=== PATIENT | male | born 1965 | race Caucasian/White ===

== ENCOUNTER 2023-02-11 17:16 | Emergency (ER) | payer MEDICAID, SELFPAY ==
[2023-02-11 17:18] VITALS: BP 141/83; PULSE 95; RESP 16; TEMP 36.3; O2SAT 100; BMI 23.4
--- NOTE | 2023-02-11 17:23 | NURSING ---
NO OLD EKGS
--- NOTE | 2023-02-11 18:15 | EKG12_ITS ---
Test Reason : CP Blood Pressure : / mmHG Vent. Rate : 085 BPM Atrial Rate : 085 BPM P-R Int : 126 ms QRS Dur : 088 ms QT Int : 366 ms P-R-T Axes : 071 052 058 degrees QTc Int : 435 ms Normal sinus rhythm Normal ECG Confirmed by KATIE BAEZ, GABRIELLA ([id number]), desk editor YOBANY KHAN ([id number]) on 02/12/2023 11:04:06 AM Referred By: ABIMAEL/DANIELE Confirmed By:GABRIELLA WILSON MD
--- NOTE | 2023-02-11 18:15 | RAD_ITS ---
EXAM: XR CHEST, 2 VIEWS CLINICAL INDICATION: chest pain TECHNIQUE: Frontal and lateral views of the chest. COMPARISON: No relevant prior studies available. FINDINGS: LUNGS AND PLEURAL SPACES: Unremarkable. No consolidation or edema. No pneumothorax. No effusion. HEART: Unremarkable. Cardiac silhouette not enlarged. MEDIASTINUM: Central airways and mediastinal contour are unremarkable. BONES/JOINTS: Unremarkable. SOFT TISSUES: Unremarkable. RAD/Chest PA and Lateral IMPRESSION: No radiographic evidence of acute cardiopulmonary disease. Electronically Signed: Maciel Dietz MD at 18:51 EDT ,
--- NOTE | 2023-02-11 18:20 | RAD_ITS ---
INDICATION: injury EXAMINATION/TECHNIQUE: X-RAY - RIGHT XR Wrist Min 3 Views 3 VIEWS COMPARISON: No relevant prior comparison study available FINDINGS: SOFT TISSUES: No soft tissue swelling or gas. No radiopaque foreign body. BONES/JOINTS: No acute fracture or subluxation.. Normal alignment. Preservation of the joint space.. No sclerotic or destructive changes observed. Old healed fifth metacarpal fracture. RAD/Wrist min 3 Views IMPRESSION: Negative. Electronically Signed: Maciel Dietz MD at 18:45 EDT ,
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
[2023-02-11] MEDS: Aspirin 81 MG TAB.CHEW 324 MG PO (18:21)
[2023-02-11 18:22] VITALS: O2SAT 100
[2023-02-11 18:26] LABS: Absolute Lymphocyte Count 1.43 X10^3/uL (0.83-4.51); Absolute Neutrophil Count 4.8 X10^3/uL (2.0-7.7); Basophil# 0.04 X10^3/uL; Basophil% 0.6 % (0-1); Eosinophil# 0.06 X10^3/uL; Eosinophils% 0.9 % (0-5); Hematocrit 39.6 % (40-54); Lymphocyte # 1.43 X10^3/ul (0.83-4.51); Lymphocyte % 20.6 % (19-41); Mean Corp Hgb Conc 32.8 g/dL (32-36); Mean Corpuscular Hgb 29.3 pg (27.0-32.0); Mean Corpuscular Volume 89.2 fL (80-94); Mean Platelet Vol. 10.2 fl (6.2-12.0); Monocyte# 0.56 X10^3/uL; Monocyte% 8.1 % (0-10); NRBC Flagged by Analyzer 0 % (0-5); Neutrophil # 4.82 X10^3/uL (2.7-7.7); Neutrophil % 69.5 % (47-70); Platelet Count 354 K/mm3 (150-450); RBC Distribution Width CV 13.2 % (11.6-14.6); RBC Distribution Width SD 42.7 fl (35.1-43.9); Red Blood Count 4.44 M/mm3 (4.6-6.2); White Blood Count 6.9 K/mm3 (4.4-11.0)
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
[2023-02-11 18:44] LABS: Anion Gap 4 (5-15); BUN 16 mg/dL (7-18); BUN/Creat Ratio 15.7 RATIO (10-20); Calcium,Total 8.7 mg/dL (8.5-10.1); Chloride 108 mmol/L (98-107); Creatinine, Serum 1.02 mg/dL (0.70-1.30); EST Glomerular Filtration Rate 81 mL/min (>60); Est Glom Filt Rate - Afr Amer 97 mL/min (>60); Estimated Creatinine Clearance 92.48 ml/min; Glucose 105 mg/dL (74-106); Potassium 3.8 mmol/L (3.5-5.1); Sodium Level 139 mmol/L (136-145); Troponin-I HS (w/2H Reflex) 7 pg/mL (3.0-78.0)
[2023-02-11 19:18] VITALS: BP 140/88; PULSE 91; RESP 16; O2SAT 98
[2023-02-11 20:22] LABS: Reflex Troponin-HS? (from REC) Y
[2023-02-11 20:59] VITALS: BP 140/84; PULSE 80
[2023-02-11 21:09] LABS: Troponin-I HS 7 pg/mL (3.0-78.0)
== END 2023-02-11 21:01 | disposition left against medical advice (07) ==
PROVIDERS: Emergency Provider Emergency Medicine; Visit Provider Emergency Medicine
DX: I20.0 Unstable angina (principal); F17.210 Nicotine dependence, cigarettes, uncomplicated; Z95.5 Presence of coronary angioplasty implant and graft; Z90.49 Acquired absence of other specified parts of digestive tract; Z98.52 Vasectomy status
CPT/HCPCS: 71046; 73090; 73110; 80048; 84484; 85025; 93005; 99285; J7030; A4216